=== PATIENT | female | born 1960 | race Caucasian/White ===

== ENCOUNTER → 2020-01-15 | Day surgery (SDC) | payer OTHER ==
[~2020-01-15] MED LIST: ATIVAN1 MG PO; AUGMENTIN 875-1 EACH PO; BENADRYL25 M1 PO; CARAFATE1 GM/10 ML PO; LIDOCAINE HCL 2% LOCAL INJ 5 ML SDV VIAL INJ ONE; MECLIZINE HCL12.5 MG PO; METOCLOPRAMIDE HCL 10 MG/2ML VIAL ONE; MUCINEX600 MG PO; PANTOPRAZOLE 40 MG 10ML VIAL ONE; PANTOPRAZOLE SO40 MG PO; PROMETHAZINE HC25 M1 PO; PROPOFOL IV EMULSION 10 MG/ML 20 ML VIAL ONE; ZYRTEC10 MG PO; fluticasone
[2020-01-15 13:45] VITALS: BP 160/90
--- NOTE | 2020-01-15 14:09 | Operative Report ---
DATE OF PROCEDURE: 01/15/2020 SURGEON: Aldo Marquez MD PROCEDURES: EGD with esophageal dilatation, esophageal brushings, polypectomy and biopsies. INDICATIONS FOR EGD: Acid reflux, dysphagia, odynophagia. MEDICATIONS: The patient was done under MAC, please see anesthesiologist's note. PROCEDURE IN DETAIL: With the patient in the left lateral decubitus position, the flexible fiberoptic Olympus gastroscope was introduced into the esophagus under direct visualization without any difficulty. The mucosa appeared somewhat thickened with some patchy erythema, and brushings were obtained to rule out Marixa esophagitis and biopsies were obtained to rule out EOE. There was a mild stricture noted at the GE junction that was dilated to size 54-[place]. The scope was then advanced with ease into the stomach traversing a small sliding hiatal hernia. Mucosa overlying the antrum and the body revealed some diffuse erythema and moderate edema, and biopsies were obtained and sent to stain for H. pylori. A minute polyp hyperplastic-appearing was noted in the midbody of the stomach and that was removed per the cold biopsy forceps. Pylorus was of normal contour and shape, was intubated with ease and the scope was advanced all the way to the second portion of the duodenum. Biopsies were obtained from the proximal second portion and duodenal bulb to rule out sprue. The scope was then withdrawn back into the stomach and retroflexed, mucosa overlying the fundus and the cardia appeared to be within normal limits. The scope was then straightened out, it was subsequently withdrawn, and the patient tolerated the procedure well. IMPRESSION: 1. Esophagitis, mild. Esophageal mucosa was brushed and biopsied to check for Marixa and to rule out EOE. 2. Esophageal stricture, GE junction, dilated to size 54-[place]. 3. Small sliding hiatal hernia. 4. Gastritis, biopsied, biopsies sent to stain for Helicobacter pylori. 5. Gastric polyp, body, minute, removed per the cold biopsy forceps. 6. Rule out sprue. PLAN: Follow up histology. Increase Protonix to 40 mg one p.o. before meals b.i.d. Continue Carafate 1 g p.o. before meals t.i.d. and at bedtime. We will add Reglan 10 mg p.o. before meals t.i.d. and at bedtime if symptoms persist and biopsies and brushings were nonrevealing. MD FUAD Hyman/RADHA /[id number] cc: Arpita Robles MD
== END | disposition home or self-care (01) ==
LOC: ENDO 12:34
PROVIDERS: ATTEND Internal Medicine Gastroenterology
DX: K21.9 Gastro-esophageal reflux disease without esophagitis (principal); K31.7 Polyp of stomach and duodenum; K29.70 Gastritis, unspecified, without bleeding; K22.2 Esophageal obstruction; K20.9 Esophagitis, unspecified; K44.9 Diaphragmatic hernia without obstruction or gangrene; K57.90 Diverticulosis of intestine, part unspecified, without perforation or abscess without bleeding; G47.33 Obstructive sleep apnea (adult) (pediatric); I10 Essential (primary) hypertension; N20.0 Calculus of kidney; F32.9 Major depressive disorder, single episode, unspecified; F41.9 Anxiety disorder, unspecified; Z88.1 Allergy status to other antibiotic agents; Z88.8 Allergy status to other drugs, medicaments and biological substances; Z01.810 Encounter for preprocedural cardiovascular examination; Z01.812 Encounter for preprocedural laboratory examination; Z11.59 Encounter for screening for other viral diseases; Z68.41 Body mass index [BMI] 40.0-44.9, adult; Z86.010 Personal history of colon polyps
CPT/HCPCS: 43239; 43450; 93005; C9113; J2001; J2704; J2765; U0002